=== PATIENT | female | born 1945 | race African-American/Black ===

== ENCOUNTER 2021-02-25 00:53 | Emergency (ER) | payer OTHER ==
[~2021-02-25] VITALS: Ht 170.2 cm; Wt 109.8 kg
[2021-02-25 02:14] LABS: BASOPHILS % 0.3 % (0.0-2.0); EOSINOPHILS % 0.4 % (0.0-5.0); HEMATOCRIT. 37.4 % (36.0-48.0); HEMOGLOBIN. 12.3 g/dL (12.0-16.0); MEAN CORPUSCULAR HEMOGLOBIN 28.2 pg (28.0-32.0); MEAN CORPUSCULAR VOLUME 86.1 fL (81.0-99.0); MEAN PLATELET VOLUME 9.6 fl (7.4-10.4); MONOCYTES % 5.8 % (2.0-8.0); NEUTROPHILS % 77.5 % (40.0-76.0); PLATELET 187 x1000/uL (130-400); RED BLOOD CELL COUNT 4.35 mill/uL (4.2-5.4); RED CELL DISTRIBUTION WIDTH 14.3 % (11.6-14.6)
[2021-02-25 02:22] LABS: CHLORIDE 106 mEq/L (98-107)
[2021-02-25 02:55] LABS: CLARITY URINE CLEAR (CLEAR); COLOR URINE YELLOW (YELLOW); KETONES URINE NEGATIVE (NEGATIVE); LEUKOCYTE ESTERASE URINE NEGATIVE (NEGATIVE); NITRITE URINE NEGATIVE (NEGATIVE); OCCULT BLOOD URINE NEGATIVE (NEGATIVE); PROTEIN URINE NEGATIVE (NEGATIVE); SPECIFIC GRAVITY URINE 1.011 (1.005-1.030); UROBILINOGEN URINE 0.2 E.U./dL (0.2-1.0)
[2021-02-25 03:22] VITALS: BP 142/90
== END 2021-02-25 03:22 | disposition home or self-care (01) ==
LOC: ER 00:53
DX: I10 Essential (primary) hypertension (principal); F41.9 Anxiety disorder, unspecified
CPT/HCPCS: 36415; 80048; 81003; 85025; 99283

== ENCOUNTER 2024-11-23 12:40 | Emergency (ER) | payer OTHER ==
[~2024-11-23] VITALS: Ht 177.8 cm; Wt 111.0 kg
[2024-11-23 12:49] VITALS: O2SAT 100
[2024-11-23] MEDS: FAMOTIDINE 20MG/2ML VIAL IV ONE (14:00)
[2024-11-23] MEDS: METOCLOPRAMIDE HCL 10MG/2ML VIAL IV ONE (14:00)
[2024-11-23] MEDS: SODIUM CHLORIDE 0.9% 1,000 ML IV ONE (14:00)
[2024-11-23 14:44] LABS: HEMATOCRIT. 38.9 % (36.0-48.0); HEMOGLOBIN. 12.4 g/dL (12.0-16.0); MEAN PLATELET VOLUME 9.6 fl (7.4-10.4); PLATELET 138 x1000/uL (130-400); RED BLOOD CELL COUNT 4.56 mill/uL (4.2-5.4); RED CELL DISTRIBUTION WIDTH 14.6 % (11.6-14.6)
[2024-11-23 15:02] LABS: CREATININE 0.9 mg/dL (0.6-1.0); TROPONIN I HIGH SENSITIVITY < 4 ng/L (3.0-34); UREA NITROGEN BLOOD 12 mg/dL (9-23)
[2024-11-23 15:04] LABS: ASPARTATE AMINOTRANSFERASE 34 IU/L (<34); BILIRUBIN DIRECT 0.1 mg/dL (<=3.0); BILIRUBIN TOTAL 0.4 mg/dL (0.1-1.0); PROTEIN TOTAL 7.5 g/dL (6.0-8.3)
[2024-11-23 15:21] LABS: LYMPHOCYTES % MANUAL 8.0 % (20.0-60.0); MONOCYTES % MANUAL 1.0 % (2.0-8.0); NEUTROPHILS % MANUAL 91.0 % (45.0-75.0); PLATELET ESTIMATE NORMAL
[2024-11-23] MEDS: MAGNESIUM 2 G PREMIX 50 ML IV ONE (16:08)
[2024-11-23] MEDS: KETOROLAC 15MG/ML VIAL IV ONE (16:09)
[2024-11-23] MEDS ORDERED: FAMO-135 MT (17:24)
[2024-11-23] MEDS ORDERED: ONDA4TAB50 MT (17:24)
[2024-11-23 17:30] VITALS: TEMP 36.4
[2024-11-23 18:30] VITALS: BP 126/67; PULSE 85; RESP 16; O2SAT 100
== END 2024-11-23 19:10 | disposition home or self-care (01) ==
LOC: ER 12:40
DX: K80.20 Calculus of gallbladder without cholecystitis without obstruction (principal); T50.905A Adverse effect of unspecified drugs, medicaments and biological substances, initial encounter; I10 Essential (primary) hypertension; Z90.710 Acquired absence of both cervix and uterus; F41.9 Anxiety disorder, unspecified; Z98.890 Other specified postprocedural states; Z79.899 Other long term (current) drug therapy; Y92.89 Other specified places as the place of occurrence of the external cause
CPT/HCPCS: 99285; 70450; 96365; 96375; 96361; 80076; 80048; 83690; 83735; 85025; 84484; 36415; 74176; 93005; J1885; J1308; J3475; J2765; J7030; A4606